=== PATIENT | male | born 1985 | race Caucasian/White ===

== ENCOUNTER 2016-10-24 22:51 | Inpatient (IN) | payer MEDICAID ==
[~2016-10-24] VITALS: Ht 175.3 cm; Wt 104.4 kg
[2016-10-25] VITALS (7 sets, daily range): BP systolic 123–133; BP diastolic 68–88
--- NOTE | 2016-10-25 | NUR ---
PT TO ED VIA TRIAGE W/ C/O INABILITY TO URINATE SINCE 1499 THIS DAY PT FIRM DISTENDED STATES PAIN 6/0-10 PT HAS HX OF HYDISPEDIAS A PEDS PT PT PLACED ON MONITOR MD HADLEY AWARE CONT TO MONITOR, AWAIT ORDERS AND DISPO
--- NOTE | 2016-10-25 02:00 | NUR ---
RED KENNETH CATHETER USED UNABLE TO ADVANCE PT PUSHING AND IN TOO MUCH PAIN MD AWARE CONT TO MONITOR
--- NOTE | 2016-10-25 03:53 | NUR ---
DR CALLAHAN AT BEDSIDE FOR BLADDER ASPIRIATION.
--- NOTE | 2016-10-25 04:30 | NUR ---
PT PREPARED FOR ADMISSION NO C/O OF PAIN AT THIS TIME VSS AWAIT BED CONT TO MONITOR
[2016-10-25 05:05] LABS: microscopic required? YES
[2016-10-25 05:06] LABS: urine erythrocyte 2+ (NEGATIVE)
[2016-10-25 05:33] LABS: CHOLESTEROL/HDL RATIO 3.5; MAGNESIUM 2.2 mg/dL (1.8-2.4); PHOSPHOROUS 3.4 mg/dL (2.5-4.9)
[2016-10-25 05:42] LABS: CALCIUM 8.6 mg/dL (8.5-10.1); CARBON DIOXIDE 26.1 mmol/L (21-32); CHLORIDE SERUM 107 mmol/L (98-107); CREATININE SERUM 0.9 mg/dL (0.7-1.3); GFR1 > 60 mL/min; GLUCOSE SERUM 93 mg/dL (74-106); POTASSIUM SERUM 3.7 mmol/L (3.5-5.1); SODIUM SERUM 140 mmol/L (136-145)
[2016-10-25 05:43] LABS: T3 TOTAL 1.12 ng/mL
[2016-10-25 05:48] LABS: BASOPHIL % 0.5 % (0-2); PLATELET COUNT 158 x10^3mcL (130-400); RED CELL DISTRIBUTION WIDTH 13.4 % (11.5-14.5)
[2016-10-25 05:50] LABS: FREE T4 1.14 ng/dL (0.76-1.46); T4(THYROXINE) 7.8 ug/dL (4.7-13.3)
--- NOTE | 2016-10-25 05:54 | NUR ---
PT RESTING NO SIGN OF DISTRESS NOTED EYES CLOSED RRR, VSS, NO C/O PAIN OR DISCOMFORT AWAIT BED CONT TO MONITOR PT
--- NOTE | 2016-10-25 06:12 | NUR ---
REPORT CALLED TO FLOOR TAMIKA CASTILLO, ALL QUESTIONS ASKED AND ANSWERED, PT TRANSFERED TO ROOM 221 A ON [place]yan MONITOR IN STABLE CONDITION W. CHART AND ALL PERSONAL BELONGINGS.
--- NOTE | 2016-10-25 06:45 | NUR ---
RECEIVED FROM ER VIA [facility]IO CAMP[facility]. BREATHING EASY ON ROOM AIR. DENIES PAIN AT THIS TIME. STS VOIDED X1 AFTER BLADDER ASPIRATION DONE AT ER. NSR ON TELE#17. S/L TO LFA PATENT. ORIENTING TO ROOM ENVIRONMENT. CALL LIGHT PLACED WITHIN EASY REACH. SIDERAILS UP X2.
--- NOTE | 2016-10-25 08:00 | NUR ---
RECEIVED APTEINT A/A/OX3; STATED HE HAS HX OF HYPOSPADIAS AND HAS SX WHEN 1 YRS OLD. HE HAS HX OF URINATION DEFFICULTY SINCE HE HAD MEMORY. HE C/O UNABLE TO VOID X 12HRS AND CAME TO ER. TELE#17 = SR. ; HR=65; NO RESP DISTRESS ON RA. DENIED PAIN. ABLE TO VOID 100CC OF URINE VIA URINAL. AMBULATORY. IVHL'D TO [facility]. CALL LIGHT IN REACH.
[2016-10-25 10:01] LABS: AMPHETAMINE QUAL UR NONE DETECTED (NEG <=1000)
--- NOTE | 2016-10-25 15:00 | NUR ---
ABLE TO VOID URINE VIA URINAL, 100CC, EVERY 1 HOUR. IVF TKO AT 10CC/HR AND ROCEPHINE IVBP GIVEN.
--- NOTE | 2016-10-25 18:02 | NUR ---
PATIENT CRYING AND FEELING OF SAD DUE TO DIFFICULTY OF URINATION. REPORTED TO SINTIA, CHARGE NURSE AND DR. YOST. SINTIA, CHARGE NURSE AT BED SIDE AND TALKED TO PATIENT NOW. DR. BRIDGES SAID HE WILL GO TO SEE PATIENT.
--- NOTE | 2016-10-25 20:31 | NUR ---
PT RECIEVED AAO REG RESP NO SOB V/S STABLE,KEPT CLEAN AND DRY TO TOUCH,MADE COMFORTABLE IN BED,PT ON TELE MONITOR AND IN NSR NO ECTOPY OR CHEST PAIN AT THIS TIME.CALL LIGHT MADE CLOSE TO THE PATIENT AND WILL CONTINUE TO MONITOR.
[2016-10-26 06:04] VITALS: BP 105/56
--- NOTE | 2016-10-26 06:32 | NUR ---
PT HAD A RESTING NIGHT AND ANO CHANGE IN CONDITION AT THIS TIME,WILL CONTINUE TO MONITOR
[2016-10-26 06:39] LABS: BASOPHIL % 0.5 % (0-2); PLATELET COUNT 159 x10^3mcL (130-400); RED CELL DISTRIBUTION WIDTH 13.7 % (11.5-14.5)
[2016-10-26 07:00] LABS: CALCIUM 8.8 mg/dL (8.5-10.1); CARBON DIOXIDE 26.7 mmol/L (21-32); CHLORIDE SERUM 108 mmol/L (98-107); CREATININE SERUM 0.9 mg/dL (0.7-1.3); GFR1 > 60 mL/min; GLUCOSE SERUM 86 mg/dL (74-106); POTASSIUM SERUM 4.2 mmol/L (3.5-5.1); SODIUM SERUM 140 mmol/L (136-145)
--- NOTE | 2016-10-26 08:00 | NUR ---
A/A/OX3; STATED ABLE TO VOID VIA BRP. DENIED PAIN. NO RESP DISTRESS ON RA. FINISHED 100% OF REGULAR DIET BREAKFAST. AMBULATORY. IVHL'D TO [facility]. IV SITE CLEAN. CALL LIGHT IN REACH.
--- NOTE | 2016-10-26 09:20 | NUR ---
DR. ALEMAN AND MEDICAL TEAM MADE MORNING ROUND. PLAN OF CARE DISCUSSED WITH PATIENT, INCLUDED WITH DISCHARGE PLAN TODAY. PATIENT AGREED WITH PLAN OF CARE.
[2016-10-26 09:39] VITALS: BP 126/85
[2016-10-26] MEDS ORDERED: BACTRIM DS1 TAB PO (11:04)
[2016-10-26] MEDS ORDERED: IBUPROFEN400 MG PO (11:04)
[2016-10-26] MEDS ORDERED: LAC PO (11:05)
[2016-10-26] MEDS ORDERED: FLO4 PO (11:13)
[2016-10-26 11:56] VITALS: BP 126/85
--- NOTE | 2016-10-26 13:30 | NUR ---
ROCEPHINE 1GM IVBP GIVEN BEFORE DISCHARG. ABLE TO VOID VIA BRP. DENIED PAIN. D/C TO HOME PER ORDER INSTRUCTION GIVEN. CONDITION STABLE.
== END 2016-10-26 13:47 | disposition home or self-care (01) | DRG 501 ==
LOC: ED 22:51 → DU 10-25 05:13 → MU 10-25 05:13 → DU 10-25 06:13 → MU 10-25 16:42
PROVIDERS: Emergency Medicine Emergency Medical Services; ADMIT Family Medicine
PROC: 0T9B3ZZ Drainage of Bladder, Percutaneous Approach (ICD-10-PCS; principal; 2016-10-25)
DX: Q54.9 Hypospadias, unspecified (principal); N17.0 Acute kidney failure with tubular necrosis; N39.0 Urinary tract infection, site not specified; R33.8 Other retention of urine; F12.10 Cannabis abuse, uncomplicated; F17.210 Nicotine dependence, cigarettes, uncomplicated
CPT/HCPCS: 83880; 84439; J0696; J1885; J2001; J3010; J7030; Q0092

== ENCOUNTER 2019-04-17 12:52 | Emergency (ER) | payer OTHER ==
[~2019-04-17] VITALS: Ht 175.3 cm; Wt 102.1 kg
[~2019-04-17 12:52] MED LIST: BACTRIM DS1 TAB PO; FLO4 PO; IBUPROFEN400 MG PO; LAC PO
[2019-04-17 12:54] VITALS: Ht 175.3 cm; Wt 102.1 kg
[2019-04-17 14:57] VITALS: BP 119/81
== END 2019-04-17 14:57 | disposition home or self-care (01) ==
LOC: ED 12:52
DX: M54.5 Low back pain (principal); G89.29 Other chronic pain
CPT/HCPCS: J1885